=== PATIENT | female | born 1955 | race Caucasian/White ===

== ENCOUNTER → 2016-11-06 | Outpatient (CLI) | payer BC ==
--- NOTE | 2016-11-06 14:35 | MM ---
Reason for exam: screening (asymptomatic). Last mammogram was performed 2 years ago. History: Patient is postmenopausal. Family history of breast cancer in maternal grandmother. Took hormonal contraceptives for 15 years. Physical Findings: A clinical breast exam by your physician is recommended on an annual basis and results should be correlated with mammographic findings. MG Screening Mammo w CAD Bilateral CC and MLO view(s) were taken. Prior study comparison: November 09, 2014, bilateral MG screening mammo w CAD. July 28, 2013, bilateral digital screening mammo w/CAD. The breast tissue is almost entirely fat. There is no discrete abnormality. No significant changes when compared with prior studies. ASSESSMENT: Negative, BI-RAD 1 RECOMMENDATION: Routine screening mammogram of both breasts in 1 year.
--- NOTE | 2016-11-07 07:09 | WWHP ---
DATE OF SERVICE: 11/06/2016 CHIEF COMPLAINT: The patient is here for her routine gynecologic exam and mammogram. HPI: This is a 61-year-old G3, P3 with an LMP of 2002. The patient is without gynecologic complaints. She denies any postmenopausal bleeding. PAST MEDICAL HISTORY: Hypothyroidism, elevated cholesterol and borderline diabetes. MEDICATIONS: 1. Levothyroxine 150 mcg daily. 2. Atorvastatin 40 mg daily. 3. Vitamin D 1000 units daily. 4. Multivitamin daily. Allergies to SULFA, which caused hives. 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 SOCIAL HISTORY: She denies tobacco and drug use and socially drinks alcohol. She has been since 1976. She recently retried and now watches her grandson 4 days per week. REVIEW OF SYSTEMS: She has gained about 7 pounds over the last 2 years. She denies respiratory, cardiac or GI problems. PHYSICAL EXAM: Blood pressure 131/82. Height 5 feet 2 inches. Weight 200 pounds. Temperature 97.6. Pulse 85. This is a well-developed, well-nourished white female who is alert and oriented x3 in no acute distress. HEENT is within normal limits. NECK: Supple without mass or thyromegaly. CHEST AND LUNGS: Clear to auscultation. HEART: Regular rate and rhythm. Breasts are without mass or discharge. Axillary exam is negative for adenopathy. BACK: Negative for CVA tenderness. ABDOMEN: Soft, nontender without palpable masses. PELVIC EXAM: External genitalia reveals mild atrophy without lesions. Cervix and vagina reveal mild atrophy without lesions. The cervix appear nulliparous. There is no evidence of prolapse. Bimanual exam, the uterus is mid position, nongravid size and nontender. There are no palpable adnexal masses or tenderness. Rectovaginal exam is negative for mass or tenderness and is negative for occult blood. EXTREMITIES: Nontender. IMPRESSION: A 61-year-old menopausal female with normal gynecologic exam. PLAN: 1. Pap smear was deferred since she had a normal one less than 2 years ago. 2. Self-breast examination was discussed. 3. Mammogram will be done today. 4. Osteoporosis prevention was discussed. 5. She will return in one year. SLY
== END ==
LOC: WWCWWP 09:46
PROVIDERS: ATTEND Obstetrics & Gynecology
DX: Z12.31 Encounter for screening mammogram for malignant neoplasm of breast (principal)

== ENCOUNTER → 2017-12-10 | Outpatient (CLI) | payer BC ==
[2017-12-10 12:39] VITALS: BP 128/79; PULSE 83; TEMP 98.5; BMI 34.5
--- NOTE | 2017-12-10 13:19 | P.HPOB ---
History of Present Illness H&P Date: 12/10/17 Chief Complaint: The patient is here for her routine gynecologic exam and mammogram. This is a 62 year old G3 PIII with an LMP of 2002. The patient is without gynecologic complaints and denies any postmenopausal bleeding. Review of Systems The patient has lost 5 pounds over the last year. She denies respiratory, cardiac, or G.I. problems. Past Medical History Past Medical History: Hyperlipidemia, Thyroid Disorder (Hypothyroid) Additional Past Medical History / Comment(s): Borderline diabetes. 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 History of Any Multi-Drug Resistant Organisms: None Reported Past Surgical History: Section (x3), Cholecystectomy, Tonsillectomy, Tubal Ligation Additional Past Surgical History / Comment(s): Colonoscopy 2014. Past Anesthesia/Blood Transfusion Reactions: No Reported Reaction Past Psychological History: No Psychological Hx Reported Smoking Status: Never smoker Past Alcohol Use History: Rare (5 per year) Past Drug Use History: None Reported Additional History: The patient has been since 1976 and is retired. She watches her grandson during the day. - Past Family History Sister(s) Family Medical History: Pulmonary Embolus Father Family Medical History: Coronary Artery Disease (CAD), Diabetes Mellitus Mother Family Medical History: Diabetes Mellitus Additional Family Medical History / Comment(s): Maternal grandmother had a breast cancer. A maternal aunt had ovarian cancer. Medications and Allergies Home Medications Medication Instructions Recorded Confirmed Type Levothyroxine Sodium [Synthroid] 137 mcg PO DAILY 10/29/14 12/10/17 History Atorvastatin Calcium [Lipitor] mg PO DAILY 12/10/17 History Cholecalciferol [Vitamin D3] unit PO DAILY 12/10/17 History Fenofibrate,Micronized mg PO 12/10/17 12/10/17 History [Fenofibrate] Multivitamin [Multivitamins Adult tab PO DAILY 12/10/17 History Gummies] Niacin (Inositol Niacinate) mg PO DAILY 12/10/17 History [Niacin 500 mg Capsule] [place]-3 Fatty Acids/Fish Oil [Fish cap PO DAILY 12/10/17 History Oil 1,000 mg Softgel] Allergies Allergy/AdvReac Type Severity Reaction Status Date / Time Sulfa (Sulfonamide Allergy Rash/Hives Verified 10/29/14 11:36 Antibiotics) Exam Vital Signs Temp Pulse BP 12/10/17 12:36 98.5 F 83 128/79 Intake and Output 12/09/17 12/10/17 12/10/17 22:59 06:59 14:59 Other: Weight 88.451 kg Height 5'3", BMI 34.5. This is a well-developed well-nourished white female who is alert and oriented times 3 in no acute distress. HEENT: Within normal limits. NECK: Supple without mass or thyromegaly. CHEST AND LUNGS: Clear to auscultation. HEART: Regular rate and rhythm. BREASTS: Are without mass or discharge. AXILLARY EXAM: Negative for adenopathy. BACK: Negative for CVA tenderness. ABDOMEN: Soft, nontender, without palpable masses. PELVIC EXAM: Normal external genitalia with mild atrophy. Cervix and vagina appear normal with mild atrophy. The cervix is somewhat stenotic and appears nulliparous.. There is no unusual discharge. There is no evidence of prolapse. The uterus is midposition, nongravid size and nontender. There are no palpable adnexal masses or tenderness. RECTAL EXAM: rectovaginal exam is negative for mass or tenderness and is negative for occult blood. EXTREMITIES: Nontender. IMPRESSION: 1. 62-year-old menopausal female with normal gynecologic exam. PLAN: 1. Pap smear was performed. 2. Self breast awareness was discussed with the patient. 3. Screening mammogram will be done today. 4. Bone density screening will be done today. This was recommended by her primary physician assistant primary care. 5. Osteoporosis prevention was discussed. 6. She will return in one year.
--- NOTE | 2017-12-11 08:53 | BD ---
EXAMINATION TYPE: Axial Bone Density DATE OF EXAM: 12/10/2017 CLINICAL HISTORY: Screening osteoporosis, Z 13.820 Height: 61.5 Weight: 195 FRAX RISK QUESTIONS: Alcohol (3 or more units per day): no Family History (Parent hip fracture): no Glucocorticoids (More than 3mos): no (Ex: prednisone, prednisolone, methylprednisolone, dexamethasone, and hydrocortisone). History of Fracture in Adulthood: no Secondary Osteoporosis: 1. Type 1 Diabetes: no 2. Hyperthyroidism: no 3. Menopause before 45: no, 49 4. Malnutrition: no 5. Chronic liver disease: no Rheumatoid Arthritis: no Current Tobacco Use: no RISK FACTORS HISTORY OF: Family History of Osteoporosis: unsure Active: yes Diet low in dairy products/other sources of calcium: no Postmenopausal woman: yes Take estrogen and/or progesterone medications: not now How long: hormonal contraceptives about 15 years Lost more than 2 inches in height since high school: no Frequent falls: no Poor Health: no Hyperparathyroidism: no Adrenal Insufficiency: no MEDICATIONS: Prednisone or other steroids: no Thyroid Medications: yes Which medication: Levothyroxine How Long: about 20 years Osteoporosis Medications: no Additional Medications: cholesterol meds Additional History: EXAM MEASUREMENTS: Bone mineral densitometry was performed using the [employer] System. Bone mineral density as measured about the Lumbar spine is: ----- L1-L4(G/cm2): 1.097 T Score Values are as follows: ----- L2: -1.2 ----- L3: -0.4 ----- L4: 1.0 ----- L1-L4: -0.7 Bone mineral density has: Decreased -0.6% since study of: 11/09/2014 Bone mineral density about the R hip (g/cm2): 0.901 Bone mineral density about the L hip (g/cm2): 0.885 T Score values are as follows: -----R Neck: -1.0 -----L Neck: -1.1 -----R Total: -0.5 -----L Total: -0.5 Bone mineral density has: Decreased -1.2% since study of: 11.09.2014 IMPRESSION: Osteopenia (T Score between -2.5 and -1). There is slightly increased risk of fracture and the patient may be considered for treatment. Re-Screen 2-5 years. There is a scoliosis. NOTE: T-SCORE=SD OF THE YOUNG ADULT MEAN.
--- NOTE | 2017-12-12 11:13 | MM ---
Reason for exam: screening (asymptomatic). Last mammogram was performed 1 year and 1 month ago. History: Patient is postmenopausal. Family history of breast cancer in maternal grandmother. Took hormonal contraceptives for 15 years. Physical Findings: A clinical breast exam by your physician is recommended on an annual basis and results should be correlated with mammographic findings. MG Screening Mammo w CAD Bilateral CC and MLO view(s) were taken. Prior study comparison: November 06, 2016, bilateral MG screening mammo w CAD. November 09, 2014, bilateral MG screening mammo w CAD. There are scattered fibroglandular densities. No significant changes when compared with prior studies. ASSESSMENT: Negative, BI-RAD 1 RECOMMENDATION: Routine screening mammogram of both breasts in 1 year.
== END | disposition home or self-care (01) ==
LOC: WWCWWP 12:03
PROVIDERS: ATTEND Obstetrics & Gynecology
DX: Z12.31 Encounter for screening mammogram for malignant neoplasm of breast (principal); M85.80 Other specified disorders of bone density and structure, unspecified site; Z78.0 Asymptomatic menopausal state
CPT/HCPCS: 77067; 77080

== ENCOUNTER → 2018-01-15 | Outpatient (CLI) | payer BC ==
--- NOTE | 2018-01-15 13:01 | XR ---
EXAMINATION TYPE: XR lumbosacral spine min 4V DATE OF EXAM: 01/15/2018 CLINICAL HISTORY: pain COMPARISON: NONE TECHNIQUE: Frontal, lateral, and oblique images of the lumbar spine are obtained. FINDINGS: There are 5 lumbar type vertebral bodies identified. Rotoscoliosis noted convex to the lef t moderate in degree. Grade 1 anterolisthesis L4 and L5 measuring 5 mm. Severe facet joint arthropath y. Vertebral body heights are within normal limits. Moderate multilevel degenerative disc space narro wing and spondylosis. The overlying soft tissue appears unremarkable. IMPRESSION: No acute fracture or dislocation is seen in the lumbar spine.ICD 10 NO FRACTURE, INITIAL EVALUATION
== END ==
LOC: RADXRYALE 11:53
PROVIDERS: ATTEND Physician Assistant Medical
DX: M54.42 Lumbago with sciatica, left side (principal)
CPT/HCPCS: 72110

== ENCOUNTER → 2019-01-06 | Outpatient (CLI) | payer BC ==
--- NOTE | 2019-01-06 14:07 | P.HPOB ---
History of Present Illness H&P Date: 01/06/19 Chief Complaint: The patient is here for her routine gynecologic exam and ma mmogram. This is a 63-year-old G3 PIII with an LMP of 2002. The patient is without gynecologic complaints. Review of Systems The patient's weight has been stable over the last year. She denies respiratory, cardiac, or G.I. problems. Past Medical History Past Medical History: Hyperlipidemia, Thyroid Disorder Additional Past Medical History / Comment(s): Hypothyroid. Osteopenia. Borderline diabetes. 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 History of Any Multi-Drug Resistant Organisms: None Reported Past Surgical History: Section, Cholecystectomy, Tonsillectomy, Tubal Ligation Additional Past Surgical History / Comment(s): C-sectionx 3 Colonoscopy 2014(next after 5yrs). 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 - Past Family History Father Family Medical History: Coronary Artery Disease (CAD), Diabetes Mellitus Mother Family Medical History: Diabetes Mellitus Additional Family Medical History / Comment(s): Maternal grandmother had a breast cancer. A maternal aunt had ovarian cancer. Sister(s) Family Medical History: Pulmonary Embolus Medications and Allergies Home Medications Medication Instructions Recorded Confirmed Type Levothyroxine Sodium [Synthroid] 137 mcg PO DAILY 10/29/14 12/10/17 History Atorvastatin Calcium [Lipitor] mg PO DAILY 12/10/17 History Cholecalciferol [Vitamin D3] unit PO DAILY 12/10/17 History Fenofibrate,Micronized mg PO 12/10/17 12/10/17 History [Fenofibrate] Multivitamin [Multivitamins Adult tab PO DAILY 12/10/17 History Gummies] Niacin (Inositol Niacinate) mg PO DAILY 12/10/17 History [Niacin 500 mg Capsule] [place]-3 Fatty Acids/Fish Oil [Fish cap PO DAILY 12/10/17 History Oil 1,000 mg Softgel] Allergies Allergy/AdvReac Type Severity Reaction Status Date / Time Sulfa (Sulfonamide Allergy Rash/Hives Verified 01/06/19 12:46 Antibiotics) Exam Vital Signs Temp Pulse Resp BP Pulse Ox 01/06/19 12:39 98.4 F 91 16 151/78 95 Height 5'2", weight 195 pounds, BMI 35.7. This is a well-developed well-nourished white female who is alert and oriented times 3 in no acute distress. HEENT: Within normal limits. NECK: Supple without mass or thyromegaly. CHEST AND LUNGS: Clear to auscultation. HEART: Regular rate and rhythm. BREASTS: Are without mass or discharge. AXILLARY EXAM: Negative for adenopathy. BACK: Negative for CVA tenderness. ABDOMEN: Soft, nontender, without palpable masses. PELVIC EXAM: Normal external genitalia with mild atrophy. Cervix and vagina appear normal with mild atrophy. There is no unusual discharge. There is no evidence of prolapse. The uterus is midposition, nongravid size and nontender. There are no palpable adnexal masses or tenderness. RECTAL EXAM: rectovaginal exam is negative for mass or tenderness and is negative for occult blood. EXTREMITIES: Nontender. IMPRESSION: 1. 63-year-old menopausal female with normal gynecologic exam. 2. History of osteopenia. PLAN: 1. Pap smear was deferred since she had a normal one on 12/10/2017. 2. Self breast awareness was discussed with the patient. 3. Screening mammogram will be done today. 4. Osteoporosis prevention was discussed. I have stressed the importance of adequate calcium, vitamin D and regular exercise. Recommended amounts of calcium and vitamin D were also discussed. We will repeat bone density testing in one to 2 years. 5. She was advised to return in one year for her annual well woman exam.
[2019-01-06 14:09] VITALS: BP 151/78; PULSE 91; RESP 16; TEMP 98.4; BMI 35.6
--- NOTE | 2019-01-07 14:26 | MM ---
Reason for exam: screening (asymptomatic). Last mammogram was performed 1 year and 1 month ago. History: Patient is postmenopausal. Family history of breast cancer in maternal grandmother. Took hormonal contraceptives for 15 years. Physical Findings: A clinical breast exam by your physician is recommended on an annual basis and results should be correlated with mammographic findings. MG Screening Mammo w CAD Bilateral CC and MLO view(s) were taken. Prior study comparison: December 10, 2017, bilateral MG screening mammo w CAD. November 06, 2016, bilateral MG screening mammo w CAD. There are scattered fibroglandular densities. No significant changes when compared with prior studies. ASSESSMENT: Benign, BI-RAD 2 RECOMMENDATION: Routine screening mammogram of both breasts in 1 year.
== END | disposition home or self-care (01) ==
LOC: WWCWWP 12:26
PROVIDERS: ATTEND Obstetrics & Gynecology
DX: Z12.31 Encounter for screening mammogram for malignant neoplasm of breast (principal)
CPT/HCPCS: 77067

== ENCOUNTER → 2020-11-15 | Outpatient (CLI) | payer BC ==
[2020-11-15 08:07] VITALS: BP 138/76; PULSE 78; RESP 18; TEMP 98.4
--- NOTE | 2020-11-15 08:35 | P.HPOB ---
History of Present Illness H&P Date: 11/15/20 Chief Complaint: The patient is here for her routine gynecologic exam and ma mmogram. This is a 65-year-old with an LMP of 2002. The patient is without gynecologic complaints and denies any postmenopausal bleeding. Review of Systems The patient has lost 5 pounds over the last year. She denies respiratory, cardiac, or G.I. problems. Past Medical History Past Medical History: Hyperlipidemia, Thyroid Disorder Additional Past Medical History / Comment(s): Hypothyroid. Osteopenia. Borderline diabetes. 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 History of Any Multi-Drug Resistant Organisms: None Reported Past Surgical History: Section, Cholecystectomy, Tonsillectomy, Tubal Ligation Additional Past Surgical History / Comment(s): C-sectionx 3. Colonoscopy 2014(next after 5yrs). Past Anesthesia/Blood Transfusion Reactions: No Reported Reaction Past Psychological History: No Psychological Hx Reported Smoking Status: Never smoker Past Alcohol Use History: Occasional (2-3 per month) Past Drug Use History: None Reported Additional History: She has been since 1976 and is retired. - Past Family History Father Family Medical History: Coronary Artery Disease (CAD), Diabetes Mellitus Mother Family Medical History: Diabetes Mellitus Additional Family Medical History / Comment(s): Maternal grandmother had a breast cancer. A maternal aunt had ovarian cancer. Sister(s) Family Medical History: Pulmonary Embolus Medications and Allergies Home Medications Medication Instructions Recorded Confirmed Type Levothyroxine Sodium [Synthroid] 150 mcg PO DAILY 10/29/14 11/15/20 History Atorvastatin Calcium [Lipitor] 40 mg PO DAILY 12/10/17 11/15/20 History Cholecalciferol [Vitamin D3] 1,000 unit PO DAILY 12/10/17 11/15/20 History Fenofibrate,Micronized 134 mg PO DAILY 12/10/17 11/15/20 History [Fenofibrate] Multivitamin [Multivitamins Adult 1 tab PO DAILY 12/10/17 11/15/20 History Gummies] [place]-3 Fatty Acids/Fish Oil [Fish 1 cap PO DAILY 12/10/17 11/15/20 History Oil 1,000 mg Softgel] Biotin 5,000 mcg PO DAILY 11/15/20 11/15/20 History Cranberry Fruit Extract [Cranberry] 200 mg PO DAILY 11/15/20 11/15/20 History Zinc 50 mg PO DAILY 11/15/20 11/15/20 History Allergies Allergy/AdvReac Type Severity Reaction Status Date / Time Sulfa (Sulfonamide Allergy Rash/Hives Verified 11/15/20 07:58 Antibiotics) Exam Vital Signs Temp Pulse Resp BP Pulse Ox 11/15/20 08:02 98.4 F 78 18 138/76 95 Intake and Output 11/14/20 11/15/20 11/15/20 22:59 06:59 14:59 Other: Weight 86.183 kg Height 5 foot 1-1/2 inches, weight 190 pounds, BMI 35.3. This is a well-developed well-nourished white female who is alert and oriented times 3 in no acute distress. HEENT: Within normal limits. NECK: Supple without mass or thyromegaly. CHEST AND LUNGS: Clear to auscultation. HEART: Regular rate and rhythm. BREASTS: Are without mass or discharge. AXILLARY EXAM: Negative for adenopathy. BACK: Negative for CVA tenderness. ABDOMEN: Soft, nontender, without palpable masses. PELVIC EXAM: Normal external genitalia with mild atrophy. Cervix and vagina appear normal with mild to moderate atrophy. The cervix appears nulliparous and is slightly stenotic secondary to atrophy. There is no unusual discharge. There is no evidence of prolapse. The uterus is midposition, nongravid size and nontender. There are no palpable adnexal masses or tenderness. RECTAL EXAM: Rectovaginal exam is negative for mass or tenderness and is negative for occult blood. EXTREMITIES: Nontender. IMPRESSION: 1. 65-year-old menopausal female with normal gynecologic exam. 2. History of osteopenia PLAN: 1. Pap smear was performed. 2. Self breast awareness was discussed with the patient. 3. Screening mammogram will be done today. 4. Osteoporosis prevention was discussed. I have stressed the importance of adequate calcium, vitamin D and regular exercise. Recommended amounts of calcium and vitamin D were also discussed. Bone density testing will be done today. 5. She is due for her colonoscopy which was done in 2014. She was told to do it again after 5 years. She will discuss this with her PCP and have arranged through that office. 6. She was advised to return in one year for her annual well woman exam.
--- NOTE | 2020-11-15 12:55 | BD ---
EXAMINATION TYPE: Axial Bone Density DATE OF EXAM: 11/15/2020 COMPARISON: 06.12.2017 CLINICAL HISTORY: 65 YR OLD FEMALE.....ICD-10 CODE: POST MENOPAUSAL Height: 60.5 Weight: 187 FRAX RISK QUESTIONS: Family History (Parent hip fracture): YES 3. Menopause before 45: AT AGE 47 RISK FACTORS HISTORY OF: Family History of Osteoporosis: YES, MATERNAL GRANDMOTHER BOTH HIPS Postmenopausal woman: YES AT 47 YRS Hyperparathyroidism: NO Adrenal Insufficiency: NO MEDICATIONS: Thyroid Medications: YES, SYNTHROID FOR ABOUT 30 YRS Additional Medications: PRE DIABETIC, NO MEDS, REFLUX MEDS, STATIN FOR CHOLESTEROL, VIT D AND CALCIUM Additional History: DIABETIC, DIET CONTROLLED, REFLUX, CHOLESTEROL, REG ARTHRITIS, SCOLIOSIS EXAM MEASUREMENTS: Bone mineral densitometry was performed using the [employer] System. Bone mineral density as measured about the Lumbar spine is: ----- L1-L4(G/cm2): 0.946 T Score Values are as follows: ----- L1: -2.8 ----- L2: -3.3 ----- L3: -2.0 ----- L4: 0.1 ----- L1-L4: -2.0 Bone mineral density has: Decreased -14.3% since study of: 06.12.2017 Bone mineral density about the R hip (g/cm2): 0.956 Bone mineral density about the L hip (g/cm2): 0.914 T Score values are as follows: -----R Neck: -1.1 -----L Neck: -1.5 -----R Total: -0.4 -----L Total: -0.7 Bone mineral density has: Decreased -0.8% since study of: 06.12.2017 FRAX%s: THERE IS A 15.6% CHANCE FOR A MAJOR OSTEOPOROTIC FX AND A 0.8% FOR HIP.......PROBABILITY F OR FX IN 10 YRS TIME IMPRESSION: Osteopenia NOTE: T-SCORE=SD OF THE YOUNG ADULT MEAN.
--- NOTE | 2020-11-17 11:27 | MM ---
Reason for exam: screening (asymptomatic). Last mammogram was performed 1 year and 10 months ago. History: Patient is postmenopausal. Family history of breast cancer in maternal grandmother. Took hormonal contraceptives for 15 years. Physical Findings: A clinical breast exam by your physician is recommended on an annual basis and results should be correlated with mammographic findings. MG Screening Mammo w CAD Bilateral CC and MLO view(s) were taken. Prior study comparison: December 10, 2017, bilateral MG screening mammo w CAD. November 06, 2016, bilateral MG screening mammo w CAD. November 09, 2014, bilateral MG screening mammo w CAD. There are scattered fibroglandular densities. There is chronic nodularity in the left breast. No significant changes when compared with prior studies. ASSESSMENT: Benign, BI-RAD 2 RECOMMENDATION: Routine screening mammogram of both breasts in 1 year.
== END ==
LOC: WWCWWP 07:43
PROVIDERS: ATTEND Obstetrics & Gynecology
DX: Z12.31 Encounter for screening mammogram for malignant neoplasm of breast (principal); Z01.419 Encounter for gynecological examination (general) (routine) without abnormal findings; Z87.39 Personal history of other diseases of the musculoskeletal system and connective tissue; E78.5 Hyperlipidemia, unspecified; E03.9 Hypothyroidism, unspecified; Z80.3 Family history of malignant neoplasm of breast; Z79.899 Other long term (current) drug therapy; Z88.2 Allergy status to sulfonamides; Z78.0 Asymptomatic menopausal state
CPT/HCPCS: 77067; 77080

== ENCOUNTER → 2022-12-18 | Outpatient (CLI) | payer MEDICARE ==
[2022-12-18 14:12] VITALS: BP 145/86; PULSE 97; RESP 17; TEMP 98.2
--- NOTE | 2022-12-18 16:37 | P.HPOB ---
History of Present Illness H&P Date: 12/18/22 Chief Complaint: The patient is here for her routine gynecologic exam and ma mmogram. This is a 67-year-old with an LMP of 2002. The patient is without gynecologic complaints. Review of Systems The patient's weight has been stable over the last year. She denies respiratory, cardiac, or G.I. problems. Past Medical History Past Medical History: Hyperlipidemia, Thyroid Disorder Additional Past Medical History / Comment(s): Hypothyroid. Osteopenia. Borderline diabetes. 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 History of Any Multi-Drug Resistant Organisms: None Reported Past Surgical History: Section, Cholecystectomy, Tonsillectomy, Tubal Ligation Additional Past Surgical History / Comment(s): C-sectionx 3. Colonoscopy 2014(next after 5yrs). Past Anesthesia/Blood Transfusion Reactions: No Reported Reaction Past Psychological History: No Psychological Hx Reported (PHQ-2 questionaire was given and she scores 0. This is a negative screen for depression.) Smoking Status: Never smoker Past Alcohol Use History: Occasional (0-2 per month.) Past Drug Use History: None Reported Additional History: She has been since 1976. She is retired. - Past Family History Father Family Medical History: Coronary Artery Disease (CAD), Diabetes Mellitus Mother Family Medical History: Diabetes Mellitus Additional Family Medical History / Comment(s): Maternal grandmother had a breast cancer. A maternal aunt had ovarian cancer. Sister(s) Family Medical History: Pulmonary Embolus Medications and Allergies Home Medications Medication Instructions Recorded Confirmed Type Levothyroxine Sodium [Synthroid] 150 mcg PO DAILY 10/29/14 12/18/22 History Atorvastatin Calcium [Lipitor] 40 mg PO DAILY 12/10/17 12/18/22 History Cholecalciferol [Vitamin D3] 1,000 unit PO DAILY 12/10/17 12/18/22 History Fenofibrate,Micronized 134 mg PO DAILY 12/10/17 12/18/22 History [Fenofibrate] Multivitamin [Multivitamins Adult 1 tab PO DAILY 12/10/17 12/18/22 History Gummies] [place]-3 Fatty Acids/Fish Oil [Fish 1 cap PO DAILY 12/10/17 12/18/22 History Oil 1,000 mg Softgel] Cranberry Fruit Extract [Cranberry] 200 mg PO DAILY 11/15/20 12/18/22 History Rosuvastatin Calcium 40 mg PO DAILY 12/12/21 12/18/22 History Allergies Allergy/AdvReac Type Severity Reaction Status Date / Time Sulfa (Sulfonamide Allergy Rash/Hives Verified 12/18/22 14:08 Antibiotics) Exam Vital Signs Temp Pulse Resp BP Pulse Ox 12/18/22 14:08 98.2 F 97 17 145/86 97 Intake and Output 12/18/22 12/18/22 12/18/22 06:59 14:59 22:59 Other: Weight 89.358 kg Height 5 feet 1 inch, weight 197 pounds, BMI 37.2. This is a well-developed well-nourished white female who is alert and oriented times 3 in no acute distress. HEENT: Within normal limits. NECK: Supple without mass or thyromegaly. CHEST AND LUNGS: Clear to auscultation. HEART: Regular rate and rhythm. BREASTS: Are without mass or discharge. AXILLARY EXAM: Negative for adenopathy. BACK: Negative for CVA tenderness. ABDOMEN: Soft, nontender, without palpable masses. PELVIC EXAM: Normal external genitalia with mild atrophy. Cervix and vagina appear normal mild atrophy. There is no unusual discharge. There is no evidence of prolapse. The uterus is midposition, nongravid size and nontender. There are no palpable adnexal masses or tenderness. RECTAL EXAM: Rectovaginal exam is negative for mass or tenderness and is negative for occult blood. EXTREMITIES: Nontender. IMPRESSION: 1. 67-year-old menopausal female with normal gynecologic exam. 2. History of osteopenia. PLAN: 1. Pap smear was performed. If this is negative we will discontinue Pap smears based on her age and history of adequate screening. 2. Self breast awareness was discussed with the patient. We have also discussed symptoms associated with inflammatory breast cancer. 3. Screening mammogram was done today. 4. Osteoporosis prevention was discussed. I have stressed the importance of adequate calcium, vitamin D and regular exercise. Recommended amounts of calcium and vitamin D were also discussed. Her last bone density test was on 11/15/2020 which showed osteopenia. I recommended repeating the bone density test and the order slip was given to the patient for this. 5. PHQ-2 questionaire was given and she scores 0. This is a negative screen for depression. 6. She was advised to return in one year for her annual well woman exam.
--- NOTE | 2022-12-19 10:09 | MM ---
Reason for Exam: Screening (asymptomatic). Last screening mammogram was performed 12 month(s) ago. Patient History: Menarche at age 15. First Full-Term at age 25. Postmenopausal. Patient used Hormonal Contraceptives for 15 year. Maternal grandmother had breast cancer at or over age 50. Maternal aunt had ovarian cancer at or over age 50. Risk Values: Kimber 5 year model risk: 1.5%. NCI Lifetime model risk: 5.6%. Prior Study Comparison: 01/06/2019 Bilateral Screening Mammogram, [facility]. 11/15/2020 Bilateral Screening Mammogram, [facility]. 12/12/2021 Bilateral MG screening mammo w CAD, [facility]. Tissue Density: There are scattered fibroglandular densities. Findings: Analyzed By CAD. There is no suspicious group of microcalcifications or new suspicious mass in either breast. Overall Assessment: Negative, BI-RAD 1 Management: Screening Mammogram of both breasts in 1 year. A clinical breast exam by your physician is recommended on an annual basis and results should be correlated with mammographic findings. Note on Kimber scores and lifetime risk: 1. A Kimber score greater than 3% is considered moderate risk. If this is the case, consider specialist referral to assess eligibility for a risk reducing agent. If overall lifetime risk for the development of breast cancer is 20% or higher, the patient may qualify for future screening with alternating mammogram and breast MRI. Electronically signed and approved by: Stan Alcantara D.O.
== END ==
LOC: WWCWWP 14:01
PROVIDERS: ATTEND Obstetrics & Gynecology
DX: Z01.419 Encounter for gynecological examination (general) (routine) without abnormal findings (principal); E03.9 Hypothyroidism, unspecified; E78.5 Hyperlipidemia, unspecified; M85.80 Other specified disorders of bone density and structure, unspecified site; Z78.0 Asymptomatic menopausal state; Z79.890 Hormone replacement therapy; Z12.31 Encounter for screening mammogram for malignant neoplasm of breast; Z80.3 Family history of malignant neoplasm of breast; Z88.2 Allergy status to sulfonamides
CPT/HCPCS: 77067

== ENCOUNTER → 2023-08-08 | Outpatient (CLI) | payer MEDICARE ==
--- NOTE | 2023-08-08 14:37 | BD ---
EXAMINATION TYPE: Axial Bone Density DATE OF EXAM: 08/08/2023 CLINICAL HISTORY: 68 years old Female. ICD-10 CODE: Z78.0 ASYMPTOMATIC MENOPAUSAL STATE Height: 61 Weight: 203.1 FRAX RISK QUESTIONS: Alcohol (3 or more units per day): no Family History (Parent hip fracture): no Glucocorticoids (More than 3mos): no History of Fracture in Adulthood: no Secondary Osteoporosis: 1. Type 1 Diabetes: no 2. Hyperthyroidism: no 3. Menopause before 45: yes 4. Malnutrition: no 5. Chronic liver disease: no Rheumatoid Arthritis: no Current Tobacco Use: no RISK FACTORS HISTORY OF: Hip Fracture (Right/Left): no Spine Fracture: no History of Wrist Fracture: no Surgery to Spine/Hip(right/left)/Wrist (right/left): no MEDICATIONS: Thyroid Medications: Levothyroxine How Long: past 20 years Osteoporosis Medications: no EXAM MEASUREMENTS: Bone mineral densitometry was performed using the [employer] System. Bone mineral density as measured about the Lumbar spine is: ----- L1-L4(G/cm2): 0.993 T Score Values are as follows: ----- L1: -2.3 ----- L2: -2.5 ----- L3: -1.5 ----- L4: -0.1 ----- L1-L4: -1.6 Z Score Values are as follows: ----- L1: -1.6 ----- L2: -1.8 ----- L3: -0.8 ----- L4: 0.6 ----- L1-L4: -0.9 Bone mineral density has: increased 5.0 % since study of: 11/15/2020 Bone mineral density about the R hip (g/cm2): 1.016 Bone mineral density about the L hip (g/cm2): 0.977 T Score values are as follows: -----R Neck: -0.7 -----L Neck: -0.8 -----R Total: 0.1 -----L Total: -0.2 Z Score values are as follows: -----R Neck: 0.3 -----L Neck: 0.1 -----R Total: 0.7 -----L Total: 0.4 Bone mineral density has: increased 6.5 % since study of: 11/15/2020 FRAX%s: The graph provided illustrates a 7.1 % chance for a major osteoporotic fx and a 0.5% chance f or the hips probability for fx in 10 years time. IMPRESSION: Osteopenia (T Score between -2.5 and -1). There is slightly increased risk of fracture and the patient may be considered for treatment. Re-Screen 2-5 years. NOTE: T-SCORE=SD OF THE YOUNG ADULT MEAN.
== END | disposition home or self-care (01) ==
LOC: RADBDWWP 10:43
PROVIDERS: ATTEND Obstetrics & Gynecology
DX: M85.89 Other specified disorders of bone density and structure, multiple sites (principal); M81.0 Age-related osteoporosis without current pathological fracture; Z78.0 Asymptomatic menopausal state
CPT/HCPCS: 77080